=== PATIENT | female | born 1935 | race Caucasian/White ===

== ENCOUNTER 2023-06-02 17:33 | Inpatient (IN) | payer MEDICARE ==
--- NOTE | 2023-06-02 17:55 | ED ---
General Adult HPI - General Chief complaint: Fever Stated complaint: poss Sepsis Time Seen by Provider: 06/02/23 17:36 Source: patient, EMS Mode of arrival: EMS Limitations: altered mental status - History of Present Illness Initial comments: Patient sent to the ED from her fdc by ambulance for evaluation of fever, hypoxia and tachycardia. Patient is normally A and O 1 per report, and she is currently at her baseline mental status. Per report, the patient was recently treated for a UTI. Per report, the patient is reluctant to take any or al medications. Patient is a poor historian. Patient is able to tell me her name. Patient also states that her abdomen hurts when asked if she is having any pain. Patient is otherwise not able to provide any useful history at this time. Patient is DO NOT RESUSCITATE. - Related Data Home Medications Medication Instructions Recorded Confirmed Acetaminophen [Tylenol 8 Hour] 650 mg PO Q8H PRN 06/02/23 06/02/23 Ferrous Sulfate [Feosol] 325 mg PO DAILY 06/02/23 06/02/23 HYDROcodone/APAP 5-325MG [[place] 1 tab PO Q6H PRN 06/02/23 06/02/23 5-325] Peg 400/Hypromellose/Glycerin 1 drop BOTH EYES BID PRN 06/02/23 06/02/23 [Artificial Tears Drops] Sodium Chloride [Saline Mist] 1 spr EA NOSTRIL BID PRN 06/02/23 06/02/23 Allergies Allergy/AdvReac Type Severity Reaction Status Date / Time codeine Allergy Unknown Verified 06/02/23 19:29 glycopyrrolate [From Robinul] Allergy Unknown Verified 06/02/23 19:29 hydrocodone Allergy Unknown Verified 06/02/23 19:29 meperidine [From Demerol] Allergy Unknown Verified 06/02/23 19:29 morphine Allergy Unknown Verified 06/02/23 19:29 oxycodone Allergy Unknown Verified 06/02/23 19:29 propoxyphene [From Darvon] Allergy Unknown Verified 06/02/23 19:29 Review of Systems ROS Statement: Those systems with pertinent positive or pertinent negative responses have been documented in the HPI. ROS Other: All systems not noted in ROS Statement are negative. Limitations: ROS unobtainable due to patients medical condition Past Medical History Additional Past Medical History / Comment(s): Diverticulitis, sepsis, acute resp failure, anemia History of Any Multi-Drug Resistant Organisms: Unobtainable Past Surgical History: Unable to Obtain Past Psychological History: No Psychological Hx Reported Smoking Status: Unknown if ever smoked Past Alcohol Use History: None Reported Past Drug Use History: None Reported General Exam Limitations: altered mental status General appearance: alert Head exam: Present: atraumatic, normocephalic Eye exam: Present: normal appearance, PERRL ENT exam: Present: mucous membranes dry Neck exam: Present: other (Trachea is midline; no nuchal rigidity). Absent: tenderness, meningismus Respiratory exam: Present: normal lung sounds bilaterally. Absent: respiratory distress, wheezes, rales, rhonchi, stridor Cardiovascular Exam: Present: normal rhythm, tachycardia, normal heart sounds, other (Normal radial pulses bilaterally) GI/Abdominal exam: Present: soft, diminished bowel sounds, other (Generalized abdominal tenderness). Absent: guarding Extremities exam: Present: other (Bilateral heel ulcers without evidence of infection/cellulitis). Absent: pedal edema, calf tenderness Back exam: Absent: CVA tenderness (R), CVA tenderness (L) Neurological exam: Present: alert Skin exam: Present: warm, dry, normal color Course Vital Signs 06/02/23 06/02/23 06/02/23 17:43 20:13 20:20 Temperature 99.8 F H Pulse Rate 155 H 160 H 138 H Respiratory 20 32 H 25 H Rate Blood Pressure 107/62 107/62 71/55 O2 Sat by Pulse 94 L 92 L 91 L Oximetry 06/02/23 06/02/23 06/02/23 20:30 20:40 20:50 Temperature Pulse Rate 140 H 151 H 138 H Respiratory 31 H 30 H 28 H Rate Blood Pressure 67/52 85/66 74/49 O2 Sat by Pulse 86 L 92 L 93 L Oximetry 06/02/23 06/02/23 06/02/23 21:00 21:10 21:20 Temperature Pulse Rate 134 H 141 H 156 H Respiratory 30 H 30 H 30 H Rate Blood Pressure 74/53 84/58 73/56 O2 Sat by Pulse 91 L 93 L 92 L Oximetry 06/02/23 06/02/23 21:30 21:40 Temperature Pulse Rate 137 H 135 H Respiratory 28 H 28 H Rate Blood Pressure 87/39 81/56 O2 Sat by Pulse 93 L 94 L Oximetry - Reevaluation(s) Reevaluation #1: 06/02/23 20:16 Patient is now in atrial fibrillation on the flight operations coordinator with heart rate in the 160s. EKG was obtained. IV diltiazem has been ordered. Will continue to monitor. 06/02/23 20:57 I spoke with the patient's son/ESTIVEN Guerra over the telephone. I provided him with an update. He is aware the patient's test results and critical condition at this time. He confirms that the patient is DO NOT RESUSCITATE/DO NOT INTUBATE. He states that he wishes for his mother to be comfortable, but he is okay with continued medical management, so long as they are not aggressive or invasive. 06/02/23 21:02 Case, H&P, test results and ED management thus far were discussed with Dr. Cheek (circular sawyer helper). He states that given the patient is DO NOT RESUSCITATE/DO NOT INTUBATE and son wishes for no aggressive/invasive measures, the patient should be admitted to the floor and not the ICU. He has no further recommendations at this time. 06/02/23 21:15 Case, H&P, test results, ED management thus far and my discussions with Dr. Cheek and the patient's son as above were discussed with Dr. Gallardo. He accepts hospital floor admission. He has no further recommendations at this time EKG Findings - EKG Comments: EKG Findings:: initial EKG: ED physician interpretation (interpreted by me): EKG is somewhat limited due to motion, sinus tachycardia, no ectopy, ventricular rate of 155 bpm, normal [place] and QRS intervals, normal QT interval, normal axis, no ST elevation, apparent inferolateral ST depression. repeat EKG (20:15): Physician interpretation (interpreted by me): Atrial fibrillation with RVR, ventricular rate of 168 bpm, normal QRS duration, normal QT interval, normal axis, inferolateral ST depression, no ST elevation Medical Decision Making - Medical Decision Making Was pt. sent in by a medical professional or institution (, PA, FOOD AND NUTRITION SUPERVISOR, urgent care, hospital, or fdc...) When possible be specific @ -No Did you speak to anyone other than the patient for history (EMS, parent, family, police, friend...)? What history was obtained from this source @ -History was also provided by EMS. Did you review nursing and triage notes (agree or disagree)? Why? @ -I reviewed and agree with nursing and triage notes Were old charts reviewed (outside hosp., previous admission, EMS record, old EKG, old radiological studies, urgent care reports/EKG's, fdc records)? Report findings @ -No old charts were reviewed Differential Diagnosis (chest pain, altered mental status, abdominal pain women, abdominal pain men, vaginal bleeding, weakness, fever, dyspnea, syncope, he adache, dizziness, GI bleed, back pain, seizure, CVA, palpatations, mental health, musculoskeletal)? @ -Differential Fever: Pneumonia, viral URI, endocarditis, sinusitis, diverticulitis, peritonitis, appendicitis, cholecystitis, intra-abdominal pathology, colitis, UTI, pyeloneph ritis, meningitis, pancreatitis, dehydration, a loculated abnormality, dysrhythmia, cardiac disease, pleural effusion, this is not meant to be an all- inclusive list. EKG interpreted by me (3pts min.). @ -As above X-rays interpreted by me (1pt min.). @ -Chest x-ray was reviewed myself and shows a right middle lobe consolidation. I agree with the radiologist's interpretation as above. CT interpreted by me (1pt min.). @ -CT abdomen/pelvis with IV contrast was reviewed myself and shows bilateral lower airspace consolidations and associated pleural effusions. I agree with the radiologist's interpretation as above. U/S interpreted by me (1pt. min.). @ -None done What testing was considered but not performed or refused? (CT, X-rays, U/S, labs)? Why? @ -None What meds were considered but not given or refused? Why? @ -IV diltiazem drip was considered, but not initiated at this time given the patient's low blood pressure. Cardioversion was also considered, but not done given the patient's son's request for comfort care and no aggressive/invasive measures. Did you discuss the management of the patient with other professionals (professionals i.e. , PA, FOOD AND NUTRITION SUPERVISOR, lab, RT, psych nurse, vp digital marketing social media and crm, tax commissioner, teacher, plain clothes police officer, director case management)? Give summary @ -As above. Was smoking cessation discussed for >3mins.? @ -No Was critical care preformed (if so, how long)? @ -Yes, 80 minutes. Were there social determinants of health that impacted care today? How? (Homelessness, low income, unemployed, alcoholism, drug addiction, transportation, low edu. Level, literacy, decrease access to med. care, shelter, rehab)? @ -No Was there de-escalation of care discussed even if they declined (Discuss DNR or withdrawal of care, Hospice)? DNR status @ -No What co-morbidities impacted this encounter? (DM, HTN, Smoking, COPD, CAD, Cancer, CVA, ARF, Chemo, Hep., AIDS, mental health diagnosis, sleep apnea, morbid obesity)? @ -None Was patient admitted / discharged? Hospital course, mention meds given and r oute, prescriptions, significant lab abnormalities, going to OR and other pertinent info. @ -Patient presented to the ED in sinus tachycardia, but converted to atrial fibrillation with RVR while in the ED. I attempted rate control with a dose of IV diltiazem. Patient's heart rate improved briefly, but then became elevated again. Patient also became hypotensive in the ED, and she has being treated with IV fluid boluses. Given the patient's hypotension, no further diltiazem was given for rate control. Patient's chest x-ray and CT demonstrate findings of pneumonia, which is what I suspect is the etiology of the patient's fever and symptoms. Patient has been treated with broad-spectrum IV antibiotics (Zosyn and vancomycin). Cardioversion was considered, but not done after speaking with the patient's son over the telephone. He states that he wishes for his mother t o be comfortable, and he does not want invasive/aggressive measures. He confirms that the patient is DO NOT RESUSCITATE/DO NOT RESUSCITATE. Case was discussed with the on-call circular sawyer helper (Dr. Cheek), who does not feel that the patient needs to be admitted to the ICU. He recommends floor admission. Case was also discussed with the on-call hospitalist (Dr. Gallardo) who accepts hospital floor admission. Undiagnosed new problem with uncertain prognosis? @ -No Drug Therapy requiring intensive monitoring for toxicity (Heparin, Nitro, Insuli n, Cardizem)? @ -No Were any procedures done? @ -No Diagnosis/symptom? @ -Pneumonia with septic shock Acute, or Chronic, or Acute on Chronic? @ -Acute Uncomplicated (without systemic symptoms) or Complicated (systemic symptoms)? @ -default Side effects of treatment? @ -No Exacerbation, Progression, or Severe Exacerbation? @ -No Poses a threat to life or bodily function? How? (Chest pain, [place], [place], pneumonia, PE, COPD, DKA, ARF, appy, cholecystitis, CVA, Diverticulitis, Homicidal, Suicidal, threat to staff... and all critical care pts) @ -Yes. Diagnosis/symptom? @ -Atrial fibrillation with RVR Acute, or Chronic, or Acute on Chronic? @ -Acute Uncomplicated (without systemic symptoms) or Complicated (systemic symptoms)? @ -default Side effects of treatment? @ -none Exacerbation, Progression, or Severe Exacerbation] @ -no Poses a threat to life or bodily function? @ -Yes. Diagnosis/symptom? @ -Elevated troponin Acute, or Chronic, or Acute on Chronic? @ -default Uncomplicated (without systemic symptoms) or Complicated (systemic symptoms)? @ -default Side effects of treatment? @ -none Exacerbation, Progression, or Severe Exacerbation] @ -no Poses a threat to life or bodily function? @ -Possibly. - Lab Data Result diagrams: 06/02/23 18:08 06/02/23 18:08 Lab Results 06/02/23 06/02/23 06/02/23 Range/Units 18:08 18:08 18:08 WBC 5.1 (3.8-10.6) k/uL RBC 3.63 L (3.80-5.40) m/uL Hgb 9.0 L (11.4-16.0) gm/dL Hct 29.0 L (34.0-46.0) % MCV 79.8 L (80.0-100.0) fL MCH 24.9 L (25.0-35.0) pg MCHC 31.2 (31.0-37.0) g/dL RDW 18.1 H (11.5-15.5) % Plt Count 300 (150-450) k/uL MPV 8.5 Neutrophils % 75 % Lymphocytes % 11 % Monocytes % 12 % Eosinophils % 0 % Basophils % 0 % Neutrophils # 3.8 (1.3-7.7) k/uL Lymphocytes # 0.5 L (1.0-4.8) k/uL Monocytes # 0.6 (0-1.0) k/uL Eosinophils # 0.0 (0-0.7) k/uL Basophils # 0.0 (0-0.2) k/uL Hypochromasia Marked Anisocytosis Slight Microcytosis Slight PT 14.0 H (10.0-12.5) sec INR 1.3 H (<1.2) APTT 22.2 (22.0-30.0) sec Sodium 137 (137-145) mmol/L Potassium 4.7 (3.5-5.1) mmol/L Chloride 104 (98-107) mmol/L Carbon Dioxide 26 (22-30) mmol/L Anion Gap 7 mmol/L BUN 21 H (7-17) mg/dL Creatinine 0.52 (0.52-1.04) mg/dL Est GFR (CKD-EPI)AfAm >90 (>60 ml/min/1.73 sqM) Est GFR (CKD-EPI)NonAf 85 (>60 ml/min/1.73 sqM) Glucose 106 H (74-99) mg/dL Plasma Lactic Acid Naldo (0.7-2.0) mmol/L Calcium 8.1 L (8.4-10.2) mg/dL Total Bilirubin 1.2 (0.2-1.3) mg/dL AST 29 (14-36) U/L ALT 17 (4-34) U/L Alkaline Phosphatase 112 (38-126) U/L Troponin I (0.000-0.034) ng/mL NT-Pro-B Natriuret Pep 5590 pg/mL Total Protein 5.9 L (6.3-8.2) g/dL Albumin 2.5 L (3.5-5.0) g/dL Urine Color Urine Appearance (Clear) Urine pH (5.0-8.0) Ur Specific [place] (1.001-1.035) Urine Protein (Negative) Urine Glucose (UA) (Negative) Urine Ketones (Negative) Urine Blood (Negative) Urine Nitrite (Negative) Urine Bilirubin (Negative) Urine Urobilinogen (<2.0) mg/dL Ur Leukocyte Esterase (Negative) Urine RBC (0-5) /hpf Urine WBC (0-5) /hpf Ur Squamous Epith Cells (0-4) /hpf Urine Mucus (None) /hpf Influenza Type A (PCR) (Not Detectd) Influenza Type B (PCR) (Not Detectd) RSV (PCR) (Not Detectd) SARS-CoV-2 (PCR) (Not Detectd) 06/02/23 06/02/23 06/02/23 Range/Units 18:08 18:08 18:08 WBC (3.8-10.6) k/uL RBC (3.80-5.40) m/uL Hgb (11.4-16.0) gm/dL Hct (34.0-46.0) % MCV (80.0-100.0) fL MCH (25.0-35.0) pg MCHC (31.0-37.0) g/dL RDW (11.5-15.5) % Plt Count (150-450) k/uL MPV Neutrophils % % Lymphocytes % % Monocytes % % Eosinophils % % Basophils % % Neutrophils # (1.3-7.7) k/uL Lymphocytes # (1.0-4.8) k/uL Monocytes # (0-1.0) k/uL Eosinophils # (0-0.7) k/uL Basophils # (0-0.2) k/uL Hypochromasia Anisocytosis Microcytosis PT (10.0-12.5) sec INR (<1.2) APTT (22.0-30.0) sec Sodium (137-145) mmol/L Potassium (3.5-5.1) mmol/L Chloride (98-107) mmol/L Carbon Dioxide (22-30) mmol/L Anion Gap mmol/L BUN (7-17) mg/dL Creatinine (0.52-1.04) mg/dL Est GFR (CKD-EPI)AfAm (>60 ml/min/1.73 sqM) Est GFR (CKD-EPI)NonAf (>60 ml/min/1.73 sqM) Glucose (74-99) mg/dL Plasma Lactic Acid Naldo 1.3 (0.7-2.0) mmol/L Calcium (8.4-10.2) mg/dL Total Bilirubin (0.2-1.3) mg/dL AST (14-36) U/L ALT (4-34) U/L Alkaline Phosphatase (38-126) U/L Troponin I (0.000-0.034) ng/mL NT-Pro-B Natriuret Pep pg/mL Total Protein (6.3-8.2) g/dL Albumin (3.5-5.0) g/dL Urine Color Light [place] Urine Appearance Clear (Clear) Urine pH 7.0 (5.0-8.0) Ur Specific [place] 1.015 (1.001-1.035) Urine Protein 1+ H (Negative) Urine Glucose (UA) Negative (Negative) Urine Ketones Negative (Negative) Urine Blood Trace (Negative) Urine Nitrite Negative (Negative) Urine Bilirubin Negative (Negative) Urine Urobilinogen 4.0 (<2.0) mg/dL Ur Leukocyte Esterase Negative (Negative) Urine RBC 16 H (0-5) /hpf Urine WBC 4 (0-5) /hpf Ur Squamous Epith Cells <1 (0-4) /hpf Urine Mucus Occasional H (None) /hpf Influenza Type A (PCR) Not Detected (Not Detectd) Influenza Type B (PCR) Not Detected (Not Detectd) RSV (PCR) Not Detected (Not Detectd) SARS-CoV-2 (PCR) Not Detected (Not Detectd) 06/02/23 Range/Units 18:08 WBC (3.8-10.6) k/uL RBC (3.80-5.40) m/uL Hgb (11.4-16.0) gm/dL Hct (34.0-46.0) % MCV (80.0-100.0) fL MCH (25.0-35.0) pg MCHC (31.0-37.0) g/dL RDW (11.5-15.5) % Plt Count (150-450) k/uL MPV Neutrophils % % Lymphocytes % % Monocytes % % Eosinophils % % Basophils % % Neutrophils # (1.3-7.7) k/uL Lymphocytes # (1.0-4.8) k/uL Monocytes # (0-1.0) k/uL Eosinophils # (0-0.7) k/uL Basophils # (0-0.2) k/uL Hypochromasia Anisocytosis Microcytosis PT (10.0-12.5) sec INR (<1.2) APTT (22.0-30.0) sec Sodium (137-145) mmol/L Potassium (3.5-5.1) mmol/L Chloride (98-107) mmol/L Carbon Dioxide (22-30) mmol/L Anion Gap mmol/L BUN (7-17) mg/dL Creatinine (0.52-1.04) mg/dL Est GFR (CKD-EPI)AfAm (>60 ml/min/1.73 sqM) Est GFR (CKD-EPI)NonAf (>60 ml/min/1.73 sqM) Glucose (74-99) mg/dL Plasma Lactic Acid Nal[place] (0.7-2.0) mmol/L Calcium (8.4-10.2) mg/dL Total Bilirubin (0.2-1.3) mg/dL AST (14-36) U/L ALT (4-34) U/L Alkaline Phosphatase (38-126) U/L Troponin I 0.043 H* (0.000-0.034) ng/mL NT-Pro-B Natriuret Pep pg/mL Total Protein (6.3-8.2) g/dL Albumin (3.5-5.0) g/dL Urine Color Urine Appearance (Clear) Urine pH (5.0-8.0) Ur Specific [place] (1.001-1.035) Urine Protein (Negative) Urine Glucose (UA) (Negative) Urine Ketones (Negative) Urine Blood (Negative) Urine Nitrite (Negative) Urine Bilirubin (Negative) Urine Urobilinogen (<2.0) mg/dL Ur Leukocyte Esterase (Negative) Urine RBC (0-5) /hpf Urine WBC (0-5) /hpf Ur Squamous Epith Cells (0-4) /hpf Urine Mucus (None) /hpf Influenza Type A (PCR) (Not Detectd) Influenza Type B (PCR) (Not Detectd) RSV (PCR) (Not Detectd) SARS-CoV-2 (PCR) (Not Detectd) - Radiology Data Chest x-ray: 1. Consolidation in the right middle lobe correlate for infection with underlying mass not entirely excluded. 2. COPD changes. CT abdomen/pelvis with IV contrast: 1. Sepsis is a clinical diagnosis. Bilateral lower lobe airspace consolidation concerning for pneumonia with associated pleural effusions. No additional evidence for acute abdominal process expansile in the patient's fever/pain. 2. Colonic diverticulosis. Critical Care Time Critical Care Time: Yes Total Critical Care Time: 80 Disposition Clinical Impression: Febrile illness, Atrial fibrillation with RVR, Pneumonia, Elevated troponin, Hypotension Disposition: ADMITTED IP TO THIS HOSP Condition: Critical Is patient prescribed a controlled substance at d/c from ED?: No Time of Disposition: 21:16
[2023-06-02] MEDS ORDERED: SODIUM CHLORIDE 0.9% 1,000 ML IV ONE ×2 (17:59→20:18)
--- NOTE | 2023-06-02 19:04 | XR ---
EXAMINATION TYPE: XR chest 1V portable DATE OF EXAM: 06/02/2023 6:53 PM CLINICAL INDICATION:Female, 87 years old with history of Fever; COMPARISON: None TECHNIQUE: XR chest 1V portable Frontal view of the chest. FINDINGS: Lungs/Pleura: Consolidation changes in the right middle lobe lung the right hilum. There is interstit ial prominence throughout the lungs. There is no evidence of pleural effusion, focal consolidation, o r pneumothorax. Pulmonary vascularity: Unremarkable. Heart/mediastinum: Cardiomediastinal silhouette is enlarged and stable. Atherosclerotic calcificatio ns are seen in the aorta. Musculoskeletal: No acute osseous pathology. Other findings: None IMPRESSION: 1. Consolidation in the right middle lobe correlate for infection with underlying mass not entirely excluded. 2. COPD changes.
[2023-06-02 19:30] LABS: Anisocytosis Slight; Basophils % (A) 0 %; Eosinophils % (A) 0 %; Hypochromasia Marked; Lymphocytes # (A) 0.5 k/uL (1.0-4.8); Lymphocytes % (A) 11 %; MCH 24.9 pg (25.0-35.0); MCHC 31.2 g/dL (31.0-37.0); MCV 79.8 fL (80.0-100.0); Mean Platelet Volume 8.5; Microcytosis Slight; Monocytes # (A) 0.6 k/uL (0-1.0); Monocytes % (A) 12 %; Neutrophils # (A) 3.8 k/uL (1.3-7.7); Neutrophils % (A) 75 %; Platelet Count 300 k/uL (150-450); RBC 3.63 m/uL (3.80-5.40); RDW 18.1 % (11.5-15.5); WBC 5.1 k/uL (3.8-10.6)
[2023-06-02 19:35] LABS: ALT 17 U/L (4-34); AST 29 U/L (14-36); African American GFR (CKD) >90 (>60 ml/min/1.73 sqM); Albumin 2.5 g/dL (3.5-5.0); Alkaline Phosphatase 112 U/L (38-126); Anion Gap 7 mmol/L; Blood Urea Nitrogen 21 mg/dL (7-17); Calcium 8.1 mg/dL (8.4-10.2); Carbon Dioxide 26 mmol/L (22-30); Chloride 104 mmol/L (98-107); Glucose 106 mg/dL (74-99); Non-African American GFR(CKD) 85 (>60 ml/min/1.73 sqM); Potassium 4.7 mmol/L (3.5-5.1); Sodium 137 mmol/L (137-145); Total Bilirubin 1.2 mg/dL (0.2-1.3); Total Protein 5.9 g/dL (6.3-8.2)
[2023-06-02 19:41] LABS: INR 1.3 (<1.2); Partial Thromboplastin Time 22.2 sec (22.0-30.0)
[2023-06-02 19:42] LABS: NT-Pro-B-Type Natriuretic Pept 5590 pg/mL
[2023-06-02] MEDS ORDERED: DILTIAZEM 5 MG/ML 5 ML VIAL IVP STA ×2 (20:16→20:18)
[2023-06-02] MEDS ORDERED: PIPERACILLIN-TAZOBACTAM 3.375 GM in SODIUM CHLORIDE 0.9% 100 ML IVPB STA (20:19)
--- NOTE | 2023-06-02 20:30 | CT ---
EXAMINATION TYPE: CT abdomen pelvis w con CT DLP: 774.4 mGycm, Automated exposure control for dose reduction was used. DATE OF EXAM: 06/02/2023 8:04 PM COMPARISON: Same day chest radiograph.. CLINICAL INDICATION:Female, 87 years old with history of fever, abdominal pain; fever, abdominal pain , r/o sepsis, [facility] TECHNIQUE: Axial CT of the ;CT abdomen pelvis w con;Sagittal and coronal reformats were created on a separate workstation. Contrast used:100 mL of Isovue 300 with IV Contrast, (none if empty) Oral contrast used: without Oral Contrast (none if empty) FINDINGS: LOWER CHEST: Airspace consolidation within the lower lobes right greater than left with associated pl eural effusions. ABDOMEN LIVER: Unremarkable GALLBLADDER AND BILE DUCTS: The gallbladder surgically absent. PANCREAS: Unremarkable. SPLEEN: Unremarkable. ADRENAL GLANDS: Unremarkable. KIDNEYS AND URETERS: No evidence of hydronephrosis or renal calculus. The ureters are unremarkable. Right renal simple appearing cyst. PELVIS BLADDER: Unremarkable REPRODUCTIVE: Unremarkable. ABDOMEN & PELVIS STOMACH AND BOWEL: No evidence of bowel obstruction. Colonic diverticulosis. PERITONEUM/RETROPERITONEUM: No evidence of pneumoperitoneum or free fluid. VASCULATURE: Mild atherosclerotic calcifications are present throughout the abdominal aorta and its b ranches. No evidence of aortic aneurysm. MUSCULOSKELETAL: No acute osseous abnormalities. Moderate disc degeneration changes are present throu ghout the thoracolumbar spine. right hip fixation hardware appears intact. LYMPH NODES: No gross evidence for lymphadenopathy. SOFT TISSUE/ABDOMINAL WALL: Unremarkable IMPRESSION: 1. Sepsis is a clinical diagnosis. Bilateral lower lobe airspace consolidation concerning for pneumo fernando with associated pleural effusions. No additional evidence for acute abdominal process expansile i n the patient's fever/pain. 2. Colonic diverticulosis.
[2023-06-02] MEDS ORDERED: VANCOMYCIN IV PER PHARMACY 1 EACH MISC MISCELLANE STA (20:46)
[2023-06-02] MEDS ORDERED: ASPIRIN 300 MG SUPP RECTAL STA (20:50)
[2023-06-02] MEDS ORDERED: NALOXONE 0.4 MG/ML 1 ML VIAL IV PRN (21:16)
[2023-06-02] MEDS: SODIUM CHLORIDE 0.9% 1,000 ML IV SCH (21:30)
[2023-06-02] MEDS ORDERED: VANCOMYCIN 1,000 MG in SODIUM CHLORIDE 0.9% 250 ML IVPB ONE (22:00)
[2023-06-02 22:28] LABS: Appearance,Urine Clear (Clear); Color,Urine Light Orange; Mucus,Urine Occasional /hpf; RBC,Urine 16 /hpf (0-5); Specific Gravity,Urine 1.015 (1.001-1.035); Squamous Epithelial Cell,Urine <1 /hpf (0-4); WBC,Urine 4 /hpf (0-5)
[2023-06-02 22:29] LABS: Bilirubin,Urine Negative (Negative); Blood,Urine Trace (Negative); Glucose,Urine (UA) Negative (Negative); Ketones,Urine Negative (Negative); Leukocyte Esterase,Urine Negative (Negative); Nitrite,Urine Negative (Negative); Protein,Urine 1+ (Negative)
[2023-06-03] MEDS ORDERED: HEPARIN SODIUM 1,000 UN/ML (10ML VL) IV PRN (01:37)
[2023-06-03] MEDS ORDERED: HEPARIN SODIUM 1,000 UN/ML (10ML VL) IV ONE (01:37)
[2023-06-03] MEDS ORDERED: SODIUM CHLORIDE 0.9% 500 ML 500 ML IV ONE (01:39)
[2023-06-03] MEDS ORDERED: DIGOXIN 250 MCG/ML 2 ML AMP IVP ONE (01:39)
[2023-06-03] MEDS ORDERED: HEPARIN SOD,PORK IN 0.45% NACL 25,000 UNIT in 0.45% NACL 1 250ML.BAG IV SCH (01:45)
[2023-06-03] MEDS ORDERED: METOPROLOL TARTRATE 5 MG/5 ML VIAL IVP PRN (02:23)
[2023-06-03 02:41] LABS: Anisocytosis Slight; Basophils % (A) 0 %; Eosinophils % (A) 0 %; HCT 26.8 % (34.0-46.0); HGB 8.1 gm/dL (11.4-16.0); Hypochromasia Marked; Lymphocytes # (A) 0.6 k/uL (1.0-4.8); Lymphocytes % (A) 9 %; MCH 24.9 pg (25.0-35.0); MCV 82.9 fL (80.0-100.0); Mean Platelet Volume 7.7; Monocytes # (A) 0.5 k/uL (0-1.0); Monocytes % (A) 7 %; Neutrophils # (A) 5.4 k/uL (1.3-7.7); Neutrophils % (A) 80 %; Platelet Count 250 k/uL (150-450); RBC 3.24 m/uL (3.80-5.40); RDW 17.8 % (11.5-15.5); WBC 6.8 k/uL (3.8-10.6)
[2023-06-03 02:49] LABS: INR 1.5 (<1.2); Partial Thromboplastin Time 30.8 sec (22.0-30.0); Prothrombin Time 15.6 sec (10.0-12.5)
--- NOTE | 2023-06-03 03:11 | XR ---
EXAM: XR Chest, 1 View CLINICAL HISTORY: resp failure TECHNIQUE: Frontal view of the chest. COMPARISON: Portable chest single view performed 06/02/2023 at 1838 hrs. FINDINGS: Lungs: There is increased consolidation involving the right perihilar region and right lower lung zone. The pulmonary vasculature appears more equalized and prominent. Pleural space: Slight blunting of the right costophrenic margin is now identified, new from the previous examination. The left costophrenic margin is sharp. No pneumothorax. Heart: The cardiac silhouette is mildly prominent, stable. Mediastinum: Limited with adjacent airspace changes. No appreciable alteration. No tracheal deviation. Bones/joints: No alteration. IMPRESSION: 1. There is increased consolidation involving the right perihilar region and right lower lung zone. Advancing pneumonia is suspected. 2. The pulmonary vasculature appears more equalized and prominent. Underlying developing pulmonary vascular congestion suspected. 3. Slight blunting of the right costophrenic margin is now identified, new from the previous examination. Small right effusion suspected.
[2023-06-03 03:13] LABS: ALT 14 U/L (4-34); AST 23 U/L (14-36); African American GFR (CKD) >90 (>60 ml/min/1.73 sqM); Alkaline Phosphatase 105 U/L (38-126); Anion Gap 8 mmol/L; Blood Urea Nitrogen 20 mg/dL (7-17); Calcium 7.4 mg/dL (8.4-10.2); Carbon Dioxide 20 mmol/L (22-30); Chloride 110 mmol/L (98-107); Glucose 124 mg/dL (74-99); Non-African American GFR(CKD) 82 (>60 ml/min/1.73 sqM); Potassium 4.4 mmol/L (3.5-5.1); Sodium 138 mmol/L (137-145)
[2023-06-03] MEDS ORDERED: PIPERACILLIN-TAZOBACTAM 3.375 GM in SODIUM CHLORIDE 0.9% 100 ML IVPB SCH (05:00)
[2023-06-03 05:16] LABS: Anisocytosis Slight; Basophils % (A) 0 %; Eosinophils % (A) 0 %; HCT 25.6 % (34.0-46.0); Hypochromasia Marked; Lymphocytes # (A) 0.6 k/uL (1.0-4.8); Lymphocytes % (A) 10 %; MCH 25.3 pg (25.0-35.0); MCHC 31.1 g/dL (31.0-37.0); MCV 81.3 fL (80.0-100.0); Monocytes # (A) 0.5 k/uL (0-1.0); Monocytes % (A) 8 %; Neutrophils # (A) 5.1 k/uL (1.3-7.7); Neutrophils % (A) 80 %; Platelet Count 276 k/uL (150-450); RBC 3.15 m/uL (3.80-5.40); RDW 18.3 % (11.5-15.5); WBC 6.5 k/uL (3.8-10.6)
[2023-06-03] MEDS ORDERED: MORPHINE SULFATE (100 MG/2 ML) 100 MG in SODIUM CHLORIDE 0.9% 100 ML IV SCH ×2 (07:45→09:30)
--- NOTE | 2023-06-03 07:48 | P.CNPUL ---
History of Present Illness Consult date: 06/03/23 Requesting physician: Kadeem Gallardo Reason for consult: pneumonia Chief complaint: Shortness of breath and fever History of present illness: I am seeing this patient in new consultation today, 06/03/2023, in the emergency room after she was sent in from [facility] after being found to be febrile and in some respiratory distress. Patient is currently obtunded and only responsive to painful stimuli. Apparently, she is fairly debilitated at baseline. She is currently lying in a Trendelenburg position. Blood pressure is borderline hypotensive. Heart rhythm is currently normal sinus, however, she was in atrial fibrillation with rapid ventricular rate earlier. She did convert with doses of Cardizem and digoxin. She is on a 15 L nonrebreather , and in some moderate respiratory distress. Chest x-ray shows increased consolidation involving the right perihilar region and right lower lung sounds concerning for advancing pneumonia. There was also mild pulmonary vascular congestion and bilateral pleural effusions. Most recent CBC shows a WBC count 6.5, hemoglobin 8, hematocrit 25.6, platelets 276. Patient was started on heparin infusion for elevated troponins and questionable NSTEMI. NT proBNP also elevated. Patient's condition is currently serious, and I did reach out to the patient's son, and only next of kin to clarify goals of treatment. He states that his mom's qu ality of life is fairly poor at baseline. I did speak to the son at length and answered all his questions, he would like to make her Comfort Care. Review of Systems ROS unobtainable: due to mental status Past Medical History Additional Past Medical History / Comment(s): Diverticulitis, sepsis, acute resp failure, anemia History of Any Multi-Drug Resistant Organisms: Unobtainable Past Surgical History: Unable to Obtain Past Psychological History: No Psychological Hx Reported Smoking Status: Unknown if ever smoked Past Alcohol Use History: None Reported Past Drug Use History: None Reported Medications and Allergies Home Medications Medication Instructions Recorded Confirmed Type Acetaminophen [Tylenol 8 Hour] 650 mg PO Q8H PRN 06/02/23 06/02/23 History Ferrous Sulfate [Feosol] 325 mg PO DAILY 06/02/23 06/02/23 History HYDROcodone/APAP 5-325MG [[place] 1 tab PO Q6H PRN 06/02/23 06/02/23 History 5-325] Peg 400/Hypromellose/Glycerin 1 drop BOTH EYES BID PRN 06/02/23 06/02/23 History [Artificial Tears Drops] Sodium Chloride [Saline Mist] 1 spr EA NOSTRIL BID PRN 06/02/23 06/02/23 History Allergies Allergy/AdvReac Type Severity Reaction Status Date / Time codeine Allergy Unknown Verified 06/02/23 19:29 glycopyrrolate [From Robinul] Allergy Unknown Verified 06/02/23 19:29 hydrocodone Allergy Unknown Verified 06/02/23 19:29 meperidine [From Demerol] Allergy Unknown Verified 06/02/23 19:29 morphine Allergy Unknown Verified 06/02/23 19:29 oxycodone Allergy Unknown Verified 06/02/23 19:29 propoxyphene [From Darvon] Allergy Unknown Verified 06/02/23 19:29 Physical Exam Vitals: Vital Signs Temp Pulse Resp BP Pulse Ox 06/03/23 06:00 78 17 94/47 96 06/03/23 05:45 78 19 99/46 97 06/03/23 05:30 95 19 96/54 96 06/03/23 05:15 80 20 98/52 97 06/03/23 05:00 79 21 104/55 96 06/03/23 04:45 80 22 97/51 95 06/03/23 04:30 82 21 95/60 96 06/03/23 04:15 81 21 85/47 99 06/03/23 04:00 80 21 94/61 97 06/03/23 03:30 120 H 20 93/52 100 06/03/23 03:00 98 20 103/71 98 06/03/23 02:30 109 H 24 100/68 97 06/03/23 02:15 120 H 22 103/79 94 L 06/03/23 02:00 126 H 27 H 85/66 96 06/03/23 01:45 137 H 24 96/64 96 06/03/23 01:30 98.5 F 130 H 26 H 86/60 95 06/03/23 01:15 138 H 24 84/62 94 L 06/03/23 01:00 114 H 23 91/67 93 L 06/03/23 00:45 124 H 22 85/54 95 06/03/23 00:30 124 H 24 88/61 95 06/03/23 00:15 124 H 23 86/57 96 06/03/23 00:00 124 H 25 H 94/60 94 L 06/02/23 23:45 122 H 23 83/57 93 L 06/02/23 23:30 130 H 25 H 84/58 95 06/02/23 23:15 129 H 24 79/56 93 L 06/02/23 23:00 122 H 27 H 86/61 94 L 06/02/23 22:46 125 H 24 82/56 92 L 06/02/23 22:45 129 H 24 90/56 93 L 06/02/23 22:30 137 H 25 H 85/62 92 L 06/02/23 22:00 133 H 26 H 93/51 95 06/02/23 21:40 135 H 28 H 81/56 94 L 06/02/23 21:30 137 H 28 H 87/39 93 L 06/02/23 21:20 156 H 30 H 73/56 92 L 06/02/23 21:10 141 H 30 H 84/58 93 L 06/02/23 21:00 134 H 30 H 74/53 91 L 06/02/23 20:50 138 H 28 H 74/49 93 L 06/02/23 20:40 151 H 30 H 85/66 92 L 06/02/23 20:30 140 H 31 H 67/52 86 L 06/02/23 20:20 138 H 25 H 71/55 91 L 06/02/23 20:13 160 H 32 H 107/62 92 L 06/02/23 17:43 99.8 F H 155 H 20 107/62 94 L Intake and Output 06/02/23 06/03/23 06/03/23 22:59 06:59 14:59 Other: Weight 58.967 kg GENERAL EXAM: Obtunded, 87-year-old female, appears debilitated and only unresponsive to painful stimuli HEAD: Normocephalic and atraumatic EYES: Normal reaction of pupils, equal size. NOSE: Clear with pink turbinates. THROAT: No erythema or exudates. NECK: No masses, no JVD. CHEST: No chest wall deformity. LUNGS: Equal air entry with diffuse rhonchi. On a 15 L nonrebreather. Abdominal breathing. CVS: S1 and S2 normal with grade 3 systolic murmur, regular rhythm. No extra h eart sounds ABDOMEN: No hepatosplenomegaly, active bowel sounds, no guarding or rigidity. SPINE: No scoliosis or deformity SKIN: No rashes CENTRAL NERVOUS SYSTEM: Obtunded, extremities are extremely weak but nonfocal. Limited participation. EXTREMITIES: There is no peripheral edema, clubbing, or cyanosis. Peripheral pulses are intact. Results - Laboratory Findings CBC and BMP: 06/03/23 04:38 06/03/23 02:20 PT/INR, D-dimer PT 15.6 sec (10.0-12.5) H 06/03/23 02:20 INR 1.5 (<1.2) H 06/03/23 02:20 Abnormal lab findings: Abnormal Labs 06/02/23 06/02/23 06/02/23 18:08 18:08 18:08 RBC 3.63 L Hgb 9.0 L Hct 29.0 L MCV 79.8 L MCH 24.9 L MCHC RDW 18.1 H Lymphocytes # 0.5 L PT 14.0 H INR 1.3 H APTT Chloride Carbon Dioxide BUN 21 H Glucose 106 H Calcium 8.1 L Troponin I Total Protein 5.9 L Albumin 2.5 L Urine Protein Urine RBC Urine Mucus 06/02/23 06/02/23 06/03/23 18:08 18:08 00:15 RBC Hgb Hct MCV MCH MCHC RDW Lymphocytes # PT INR APTT Chloride Carbon Dioxide BUN Glucose Calcium Troponin I 0.043 H* 0.107 H* Total Protein Albumin Urine Protein 1+ H Urine RBC 16 H Urine Mucus Occasional H 06/03/23 06/03/23 06/03/23 02:20 02:20 02:20 RBC 3.24 L Hgb 8.1 L Hct 26.8 L MCV MCH 24.9 L MCHC 30.0 L RDW 17.8 H Lymphocytes # 0.6 L PT 15.6 H INR 1.5 H APTT 30.8 H Chloride 110 H Carbon Dioxide 20 L BUN 20 H Glucose 124 H Calcium 7.4 L Troponin I Total Protein 5.0 L Albumin 2.0 L Urine Protein Urine RBC Urine Mucus 06/03/23 06/03/23 04:38 04:38 RBC 3.15 L Hgb 8.0 L Hct 25.6 L MCV MCH MCHC RDW 18.3 H Lymphocytes # 0.6 L PT INR APTT 64.9 H Chloride Carbon Dioxide BUN Glucose Calcium Troponin I Total Protein Albumin Urine Protein Urine RBC Urine Mucus - Diagnostic Findings Chest x-ray: image reviewed Assessment and Plan Assessment: Acute hypoxemic respiratory failure, currently on a 15 L nonrebreather, related to pneumonia and sepsis. Patient also likely has a component of congestive heart failure exacerbation. Unknown systolic or diastolic type. Elevated troponins, rule out non-ST elevation SD, currently on a heparin infusion per protocol Atrial fibrillation with rapid ventricular rate, converted to normal sinus Normocytic normochromic anemia, no obvious bleeding noted [facility] resident. Altered mental status Plan: I did have a long conversation with the patient's son and next of kin, he did NOT want to pursue any further medical management. He told me that her quality life is poor already. Patient is currently in some respiratory distress. I discussed possible interventions such as BIPAP or invasive ventilator managment. Patient was already a DO NOT RESUSCITATE/DO NOT INTUBATE. He would like to make the patient Comfort Care. I did add the comfort care order set after speaking to my supervising physician. Is a joint evaluation that was done along with a nurse practitioner. His evaluation was done in more than 30 minutes. The patient presented to us with acute hypoxic respiratory failure. The patient was in A. fib RVR and the patient also ruled in for an acute non-ST segment elevation myocardial infarction. The chest x-ray that was done in the emergency department showed cardiomegaly and addition to that, there was a right lower lobe pulmonary infiltrates consistent with a acute pneumonia and there was some increased pulmonary vascular markings in addition. The troponin peaked at 0.143. The proBNP level was 5519. The viral screen was negative. The patient is chronically anemic with a hemoglobin of 8.0. The CAT scan of the abdomen was also done in emergency department that showed a basilar lower lobe consolidation concerning for pneumonia. No evidence of any acute intra-abdominal process. There was evidence of colonic diverticulosis. In summary, the patient was status post to get admitted for acute hypoxic respiratory failure. Family opted to go with comfort care measures only. As such, the patient is currently undergoing end-of-life care. Her condition was quite debilitated at time of admission. She is currently on morphine drip at 3 mg an hour. She is resting comfortably in bed. Time with Patient: Greater than 30
[2023-06-03] MEDS ORDERED: SCOPOLAMINE 1 MG/72 HR PATCH TRANSDERM SCH (08:00)
[2023-06-03] MEDS ORDERED: VANCOMYCIN 1,000 MG in SODIUM CHLORIDE 0.9% 250 ML IVPB SCH (09:00)
[2023-06-03 09:40] VITALS: TEMP 98.4
[2023-06-03] MEDS: SODIUM CHLORIDE 0.9% 1,000 ML IV SCH (11:18)
--- NOTE | 2023-06-03 13:37 | P.HPIM ---
History of Present Illness H&P Date: 06/03/23 Chief Complaint: Altered mental status, shortness of breath * 87-year-old patient who presents from a very large with altered mental status, minimally responsive. Patient was noted to be critically ill at the time of presentation in ED. She was noted to have atrial fibrillation with rapid ventricular response. Patient was noted to be in severe sepsis and shock and intensive care unit team was contacted at the time of admission however patient was deemed to be no code per family no aggressive measures were warranted hence patient was flat to be admitted to general medical floor. * While in ER patient was noted to be hypotensive and tachycardia, patient was started on IV antibiotic and receive IV Zosyn, multiple fluid boluses were given approximately 3 L him a and was started on broad-spectrum antibiotic. Patient was also started on IV heparin for atrial fibrillation as well as elevated troponin. Patient in ED received IV Cardizem and IV digoxin for rate control. Patient continued to remain hemodynamically unstable in ED through the admission and ultimately family was contacted. Palliative care team was contacted as well and cardiology and pulmonary medicine was consulted upon admission. * Patient was aggressively treated for several hours however continue to have poor prognosis hence patient was transitioned to comfort measures after discussion between pulmonary medicine/intensive care unit team and patient's son Victor Manuelri REVIEW OF SYSTEMS: Limited secondary to altered mentation PHYSICAL EXAMINATION: Limited patient transition to comfort measures GENERAL: The patient is alert and oriented x o, ill appearance, toxic appearance HEENT: atraumatic, normocephalic CARDIOVASCULAR: Irregular, tachycardia noted PULMONARY: No respiratory distress noted no use of accessory muscle ABDOMEN: Nondistended NEUROLOGICAL: Limited altered mentation Past Medical History Additional Past Medical History / Comment(s): Diverticulitis, sepsis, acute resp failure, anemia History of Any Multi-Drug Resistant Organisms: Unobtainable Past Surgical History: Unable to Obtain Past Psychological History: No Psychological Hx Reported Smoking Status: Unknown if ever smoked Past Alcohol Use History: None Reported Past Drug Use History: None Reported Medications and Allergies Home Medications Medication Instructions Recorded Confirmed Type Acetaminophen [Tylenol 8 Hour] 650 mg PO Q8H PRN 06/02/23 06/02/23 History Ferrous Sulfate [Feosol] 325 mg PO DAILY 06/02/23 06/02/23 History HYDROcodone/APAP 5-325MG [[place] 1 tab PO Q6H PRN 06/02/23 06/02/23 History 5-325] Peg 400/Hypromellose/Glycerin 1 drop BOTH EYES BID PRN 06/02/23 06/02/23 History [Artificial Tears Drops] Sodium Chloride [Saline Mist] 1 spr EA NOSTRIL BID PRN 06/02/23 06/02/23 History Allergies Allergy/AdvReac Type Severity Reaction Status Date / Time codeine Allergy Unknown Verified 06/02/23 19:29 glycopyrrolate [From Robinul] Allergy Unknown Verified 06/02/23 19:29 hydrocodone Allergy Unknown Verified 06/02/23 19:29 meperidine [From Demerol] Allergy Unknown Verified 06/02/23 19:29 morphine Allergy Unknown Verified 06/02/23 19:29 oxycodone Allergy Unknown Verified 06/02/23 19:29 propoxyphene [From Darvon] Allergy Unknown Verified 06/02/23 19:29 Physical Exam Vitals: Vital Signs Temp Pulse Pulse Resp BP BP Pulse Ox 06/03/23 09:16 98.4 F 85 28 H 94/50 89 L 06/03/23 06:00 78 17 94/47 96 06/03/23 05:45 78 19 99/46 97 06/03/23 05:30 95 19 96/54 96 06/03/23 05:15 80 20 98/52 97 06/03/23 05:00 79 21 104/55 96 06/03/23 04:45 80 22 97/51 95 06/03/23 04:30 82 21 95/60 96 06/03/23 04:15 81 21 85/47 99 06/03/23 04:00 80 21 94/61 97 06/03/23 03:30 120 H 20 93/52 100 06/03/23 03:00 98 20 103/71 98 06/03/23 02:30 109 H 24 100/68 97 06/03/23 02:15 120 H 22 103/79 94 L 06/03/23 02:00 126 H 27 H 85/66 96 06/03/23 01:45 137 H 24 96/64 96 06/03/23 01:30 98.5 F 130 H 26 H 86/60 95 06/03/23 01:15 138 H 24 84/62 94 L 06/03/23 01:00 114 H 23 91/67 93 L 06/03/23 00:45 124 H 22 85/54 95 06/03/23 00:30 124 H 24 88/61 95 06/03/23 00:15 124 H 23 86/57 96 06/03/23 00:00 124 H 25 H 94/60 94 L 06/02/23 23:45 122 H 23 83/57 93 L 06/02/23 23:30 130 H 25 H 84/58 95 06/02/23 23:15 129 H 24 79/56 93 L 06/02/23 23:00 122 H 27 H 86/61 94 L 06/02/23 22:46 125 H 24 82/56 92 L 06/02/23 22:45 129 H 24 90/56 93 L 06/02/23 22:30 137 H 25 H 85/62 92 L 06/02/23 22:00 133 H 26 H 93/51 95 06/02/23 21:40 135 H 28 H 81/56 94 L 06/02/23 21:30 137 H 28 H 87/39 93 L 06/02/23 21:20 156 H 30 H 73/56 92 L 06/02/23 21:10 141 H 30 H 84/58 93 L 06/02/23 21:00 134 H 30 H 74/53 91 L 06/02/23 20:50 138 H 28 H 74/49 93 L 06/02/23 20:40 151 H 30 H 85/66 92 L 06/02/23 20:30 140 H 31 H 67/52 86 L 06/02/23 20:20 138 H 25 H 71/55 91 L 06/02/23 20:13 160 H 32 H 107/62 92 L 06/02/23 17:43 99.8 F H 155 H 20 107/62 94 L Intake and Output 06/02/23 06/03/23 06/03/23 22:59 06:59 14:59 Intake Total 43.046 Balance 43.046 Intake: Intake, IV Titration 43.046 Amount Heparin Sod,Pork in 0.45% 43.046 NaCl 25,000 unit In 0.45 % NaCl 1 250ml.bag @ 12 UNITS/KG/HR 7.076 mls/hr IV .Q24H [facility] Rx#: [id number] Other: Weight 58.967 kg Results CBC & Chem 7: 06/03/23 04:38 06/03/23 02:20 Labs: Abnormal Lab Results - Last 24 Hours (Table) 06/02/23 06/02/23 06/02/23 Range/Units 18:08 18:08 18:08 RBC 3.63 L (3.80-5.40) m/uL Hgb 9.0 L (11.4-16.0) gm/dL Hct 29.0 L (34.0-46.0) % MCV 79.8 L (80.0-100.0) fL MCH 24.9 L (25.0-35.0) pg MCHC (31.0-37.0) g/dL RDW 18.1 H (11.5-15.5) % Lymphocytes # 0.5 L (1.0-4.8) k/uL PT 14.0 H (10.0-12.5) sec INR 1.3 H (<1.2) APTT (22.0-30.0) sec Chloride (98-107) mmol/L Carbon Dioxide (22-30) mmol/L BUN 21 H (7-17) mg/dL Glucose 106 H (74-99) mg/dL Calcium 8.1 L (8.4-10.2) mg/dL Troponin I (0.000-0.034) ng/mL Total Protein 5.9 L (6.3-8.2) g/dL Albumin 2.5 L (3.5-5.0) g/dL Urine Protein (Negative) Urine RBC (0-5) /hpf Urine Mucus (None) /hpf 06/02/23 06/02/23 06/03/23 Range/Units 18:08 18:08 00:15 RBC (3.80-5.40) m/uL Hgb (11.4-16.0) gm/dL Hct (34.0-46.0) % MCV (80.0-100.0) fL MCH (25.0-35.0) pg MCHC (31.0-37.0) g/dL RDW (11.5-15.5) % Lymphocytes # (1.0-4.8) k/uL PT (10.0-12.5) sec INR (<1.2) APTT (22.0-30.0) sec Chloride (98-107) mmol/L Carbon Dioxide (22-30) mmol/L BUN (7-17) mg/dL Glucose (74-99) mg/dL Calcium (8.4-10.2) mg/dL Troponin I 0.043 H* 0.107 H* (0.000-0.034) ng/mL Total Protein (6.3-8.2) g/dL Albumin (3.5-5.0) g/dL Urine Protein 1+ H (Negative) Urine RBC 16 H (0-5) /hpf Urine Mucus Occasional H (None) /hpf 06/03/23 06/03/23 06/03/23 Range/Units 02:20 02:20 02:20 RBC 3.24 L (3.80-5.40) m/uL Hgb 8.1 L (11.4-16.0) gm/dL Hct 26.8 L (34.0-46.0) % MCV (80.0-100.0) fL MCH 24.9 L (25.0-35.0) pg MCHC 30.0 L (31.0-37.0) g/dL RDW 17.8 H (11.5-15.5) % Lymphocytes # 0.6 L (1.0-4.8) k/uL PT 15.6 H (10.0-12.5) sec INR 1.5 H (<1.2) APTT 30.8 H (22.0-30.0) sec Chloride 110 H (98-107) mmol/L Carbon Dioxide 20 L (22-30) mmol/L BUN 20 H (7-17) mg/dL Glucose 124 H (74-99) mg/dL Calcium 7.4 L (8.4-10.2) mg/dL Troponin I (0.000-0.034) ng/mL Total Protein 5.0 L (6.3-8.2) g/dL Albumin 2.0 L (3.5-5.0) g/dL Urine Protein (Negative) Urine RBC (0-5) /hpf Urine Mucus (None) /hpf 06/03/23 06/03/23 06/03/23 Range/Units 04:38 04:38 04:38 RBC 3.15 L (3.80-5.40) m/uL Hgb 8.0 L (11.4-16.0) gm/dL Hct 25.6 L (34.0-46.0) % MCV (80.0-100.0) fL MCH (25.0-35.0) pg MCHC (31.0-37.0) g/dL RDW 18.3 H (11.5-15.5) % Lymphocytes # 0.6 L (1.0-4.8) k/uL PT (10.0-12.5) sec INR (<1.2) APTT 64.9 H (22.0-30.0) sec Chloride (98-107) mmol/L Carbon Dioxide (22-30) mmol/L BUN (7-17) mg/dL Glucose (74-99) mg/dL Calcium (8.4-10.2) mg/dL Troponin I 0.143 H* (0.000-0.034) ng/mL Total Protein (6.3-8.2) g/dL Albumin (3.5-5.0) g/dL Urine Protein (Negative) Urine RBC (0-5) /hpf Urine Mucus (None) /hpf Thrombosis Risk Factor Assmnt - DVT/VTE Prophylaxis DVT/VTE Prophylaxis: Pharmacologic Prophylaxis ordered, Mechanical Prophylaxis ordered, Contraindicated - See note Assessment and Plan Assessment: Assessment and plan Acute metabolic encephalopathy Severe sepsis with bilateral lower lobe pneumonia Multifocal pneumonia Atrial fib pressure rapid monitor response Non-ST elevated MS Acute hypoxic respiratory failure with severe ARDS Acute exacerbation of congestive heart failure unknown type * Patient was resuscitated with IV fluid, treated on sepsis protocol, started on broad-spectrum antibiotic Zosyn and vancomycin, blood cultures collected however ultimately patient continued to have poor prognosis and palliative care team was consulted as well. Ultimately patient was transitioned to comfort measures on 06/03/2023 * In regards to multifocal pneumonia patient treated with broad-spectrum antibiotics which were eventually discontinued since patient transition to comfort measures * In regards to atrial fibrillation patient was given IV Cardizem push, was given 1 dose of digoxin as well. Patient was started on IV heparin in ER which was eventually discontinued since transitioned to comfort measures * In regards to non-ST elevated MS patient was started on IV heparin with consultation from cardiology, however focuses to keep her comfortable hence transition to no code comfort measures * CODE STATUS no code upon admission however eventually transitioned to comfort measures Time with Patient: Greater than 30
[2023-06-03 14:23] VITALS: BP 94/51; PULSE 61
[2023-06-03 20:28] VITALS: RESP 20
[2023-06-04] MEDS: SODIUM CHLORIDE 0.9% 1,000 ML IV SCH (01:59)
--- NOTE | 2023-06-04 08:50 | P.DS ---
Providers Date of admission: 06/02/23 21:18 Expected date of discharge: 06/04/23 Attending physician: Kadeem Gallardo MD Consults: 06/02/23 22:56 Consult to Palliative Care Urgent Consulting Provider: Valerie Reyes Consult Reason/Comments: Sepsis, atrial fibrillation, hypotension Do you want consulting provider notified?: Yes 06/03/23 01:42 Consult Physician Routine Consulting Provider: Boni Cheek Consult Reason/Comments: Pneumonia, resp failure Do you want consulting provider notified?: Yes Primary care physician: Josefina Seals DO Hospital Course: * 87-year-old patient who presents from a very large with altered mental status, minimally responsive. Patient was noted to be critically ill at the time of presentation in ED. She was noted to have atrial fibrillation with rapid ventricular response. Patient was noted to be in severe sepsis and shock and intensive care unit team was contacted at the time of admission however patient was deemed to be no code per family no aggressive measures were warranted hence patient was flat to be admitted to general medical floor. * While in ER patient was noted to be hypotensive and tachycardia, patient was started on IV antibiotic and receive IV Zosyn, multiple fluid boluses were given approximately 3 L him a and was started on broad-spectrum antibiotic. Patient was also started on IV heparin for atrial fibrillation as well as elevated troponin. Patient in ED received IV Cardizem and IV digoxin for rate control. Patient continued to remain hemodynamically unstable in ED through the admission and ultimately family was contacted. Palliative care team was contacted as well and cardiology and pulmonary medicine was consulted upon admission. * Patient was aggressively treated for several hours however continue to have poor prognosis hence patient was transitioned to comfort measures after discussion between pulmonary medicine/intensive care unit team and patient's son Pepito * 06/04/23: Patient was admitted to medical floor is comfort measures, patient ultimately on 06/04/23 at 0748 Assessment: Assessment and plan Acute metabolic encephalopathy Severe sepsis with bilateral lower lobe pneumonia Multifocal pneumonia Atrial fib pressure rapid monitor response Non-ST elevated MA Acute hypoxic respiratory failure with severe ARDS Acute exacerbation of congestive heart failure unknown type Patient was transitioned to comfort measures and Patient Condition at Discharge: Undetermined Plan - Discharge Summary Discharge Rx Participant: No New Discharge Prescriptions: Discontinued Ferrous Sulfate [Feosol] 325 mg PO DAILY Acetaminophen [Tylenol 8 Hour] 650 mg PO Q8H PRN PRN Reason: Pain Peg 400/Hypromellose/Glycerin [Artificial Tears Drops] 1 drop BOTH EYES BID PRN PRN Reason: Pain HYDROcodone/APAP 5-325MG [[place] 5-325] 1 tab PO Q6H PRN PRN Reason: Pain Sodium Chloride [Saline Mist] 1 spr EA NOSTRIL BID PRN PRN Reason: Congestion Discharge Disposition: - Preliminary Cause of Preliminary Cause of : Pneumonia
--- NOTE | 2023-06-06 06:27 | CDI ---
Documentation Clarification Form Date: 06/06/2023 06:00:10 AM From: Noelle Chamberlain Admit Date: 06/02/2023 09:18:00 PM Patient Name: Ginger Guerra Visit Number: [id number] Discharge Date: 06/04/2023 10:07:00 AM ATTENTION: The Clinical Documentation Specialists (CDI) and [facility] Coding Staff appreciate your assistance in clarifying documentation. Please respond to the clarification below the line at the bottom and electronically sign. The CDI & [facility] Coding staff will review the response and follow-up if needed. Please note: Queries are made part of the Legal Health Record. If you have any questions, please contact the author of this message via ITS. Dr. Kadeem Gallardo, Bilateral heel pressure ulcers are documented by Nursing Pressure Injury Assessment History on 06/03. Bilateral heel ulcers also documented in ED Note. Based on this information and the findings below, is there an additional diagnosis that is clinically appropriate for this patient? History/Risk Factors: sepsis and septic shock, metabolic encephalopathy, ARDS, NSTEMI, pneumonia, hypertensive heart disease with acute heart failure, atrial fibrillation Clinical Indicators: bilateral heel ulcers Wound description: Heels: dry & intact Treatment: Foam w/Border Is there an additional diagnosis that is clinically appropriate for this patient? [ ] Bilateral Heel Pressure Ulcer Stage 1 [ ] Bilateral Heel Pressure Ulcer Stage 2 [ ] Bilateral Heel] Pressure Ulcer Stage 3 [ ] Bilateral Heel Pressure Ulcer Stage 4 [ ] Bilateral Heel Pressure Ulcer unstageable [ ] Bilateral Heel Deep tissue injury [ ] Other condition, please specify [ y ] Unable to determine Clinical Definitions: Stage 1 Pressure Ulcer: intact skin, non-blanching redness of local area Stage 2 Pressure Ulcer: Partial thickness, loss of dermis, pink wound bed Stage 3 Pressure Ulcer: Full thickness tissue loss Stage 4 Pressure Ulcer: Full thickness tissue loss with exposed bone, tendon, or muscle. Unstageable pressure ulcer: Full thickness tissue loss in which the base of the ulcer is covered by slough (yellow, calderon, bales, green or brown) and/or eschar (calderon, brown or black) in the wound bed. MTDD
--- NOTE | 2023-06-06 06:31 | CDI ---
Documentation Clarification Form Date: 06/06/2023 06:00:10 AM From: Noelle Chamberlain Admit Date: 06/02/2023 09:18:00 PM Patient Name: Ginger Guerra Visit Number: [id number] Discharge Date: 06/04/2023 10:07:00 AM ATTENTION: The Clinical Documentation Specialists (CDI) and [facility] Coding Staff appreciate your assistance in clarifying documentation. Please respond to the clarification below the line at the bottom and electronically sign. The CDI & [facility] Coding staff will review the response and follow-up if needed. Please note: Queries are made part of the Legal Health Record. If you have any questions, please contact the author of this message via ITS. Dr. Kadeem Gallardo, Coccyx pressure ulcers is documented by Nursing Pressure Injury Assessment History on 06/03. Based on this information and the findings below, is there an additional diagnosis that is clinically appropriate for this patient? History/Risk Factors: sepsis and septic shock, metabolic encephalopathy, ARDS, NSTEMI, pneumonia, hypertensive heart disease with acute heart failure, atrial fibrillation Clinical Indicators: Coccyx ulcer Wound description: Coccyx: Deep pressure injury, serosanguinous Treatment: Foam w/Border Is there an additional diagnosis that is clinically appropriate for this patient? [ ] Coccyx Pressure Ulcer Stage 1 [ ] Coccyx Pressure Ulcer Stage 2 [ ] Coccyx Pressure Ulcer Stage 3 [ ] Coccyx Pressure Ulcer Stage 4 [ ] Coccyx Pressure Ulcer unstageable [ ] Bilateral Heel Deep tissue injury [ ] Other condition, please specify [ y ] Unable to determine Clinical Definitions: Stage 1 Pressure Ulcer: intact skin, non-blanching redness of local area Stage 2 Pressure Ulcer: Partial thickness, loss of dermis, pink wound bed Stage 3 Pressure Ulcer: Full thickness tissue loss Stage 4 Pressure Ulcer: Full thickness tissue loss with exposed bone, tendon, or muscle. Unstageable pressure ulcer: Full thickness tissue loss in which the base of the ulcer is covered by slough (yellow, calderon, bales, green or brown) and/or eschar (calderon, brown or black) in the wound bed. MTDD
== END 2023-06-04 10:07 | disposition expired | DRG 871 ==
LOC: EC 17:33 → 5NMEDONC 21:18 → 3SCARD 23:06 → 5NMEDONC 06-03 08:53
PROVIDERS: ADMIT Internal Medicine; ATTEND Internal Medicine
DX: A41.9 Sepsis, unspecified organism (principal); G93.41 Metabolic encephalopathy; J80 Acute respiratory distress syndrome; R65.21 Severe sepsis with septic shock; I21.4 Non-ST elevation (NSTEMI) myocardial infarction; J18.9 Pneumonia, unspecified organism; L89.159 Pressure ulcer of sacral region, unspecified stage; L89.629 Pressure ulcer of left heel, unspecified stage; L89.619 Pressure ulcer of right heel, unspecified stage; I11.0 Hypertensive heart disease with heart failure; I50.9 Heart failure, unspecified; I48.91 Unspecified atrial fibrillation; Z66 Do not resuscitate; Z51.5 Encounter for palliative care; D64.9 Anemia, unspecified; K57.30 Diverticulosis of large intestine without perforation or abscess without bleeding; Z79.899 Other long term (current) drug therapy; Z87.440 Personal history of urinary (tract) infections; Z88.5 Allergy status to narcotic agent; Z88.8 Allergy status to other drugs, medicaments and biological substances
CPT/HCPCS: 36415; 71045; 74177; 80053; 81001; 83605; 83880; 84484; 85025; 85610; 85730; 87040; 87636; 93005; 96361; 96365; 96366; 96367; 96375; 99291; 99292